=== PATIENT | female | born 1995 | race Hispanic/Latino ===

== ENCOUNTER 2018-01-07 11:26 | Emergency (ER) | payer OTHER ==
[~2018-01-07] VITALS: Ht 165.1 cm; Wt 94.1 kg
[2018-01-07] MEDS ORDERED: IBUPROFEN 200 MG TAB PO STA (11:46)
== END 2018-01-07 11:59 | disposition home or self-care (01) ==
LOC: FSED 11:26
DX: M54.2 Cervicalgia (principal); V43.53XA Car driver injured in collision with pick-up truck in traffic accident, initial encounter; Y92.488 Other paved roadways as the place of occurrence of the external cause
CPT/HCPCS: 81003; 81025; 99283